=== PATIENT | female | born 1980 | race Asian ===

== ENCOUNTER 2019-06-30 07:56 | Inpatient (IN) ==
[2019-06-30] MEDS: LACTATED RINGER'S 1,000 ML IV PRN ×3 (08:25→18:22)
[2019-06-30] MEDS ORDERED: OXYTOCIN 30 UNITS/500 ML BAG IV PRN ×2 (08:55→09:20)
[2019-06-30] MEDS ORDERED: DEXTROSE 50% 50 ML SYRINGE IV PRN (08:56)
[2019-06-30] MEDS ORDERED: SODIUM CHLORIDE 0.9% 1000ML 1,000 ML IV PRN (08:56)
--- NOTE | 2019-06-30 09:00 | Labor Progress Brief Note ---
Date of Service June 30, 2019 Subjective Patient returns for planned IOL this AM. Delgado remains in place. Good FM, no LOF, no VB, no Ctx. Assessment & Plan (1) Gestational diabetes mellitus (GDM) controlled on oral hypoglycemic drug, antepartum: Induction of labor as indicated between 39-40 weeks for A2GDM. Will use insulin and glucose per protocol for tight glycemic control. Pitocin drip for induction. Epidural on request. Present on Admission?: Yes Physical Exam Physical Exam: Delgado bulb in vagina removed via gentle traction. Poor patient tolerance of exam; I am able to palpate the external cervix which feels at least 3cm dilated, soft, estimate 50% effaced, and would call station high and position mid. US in office yesterday done by this MD confirmed vertex position. Results & Data Vital Signs (Past 12 Hours) Vital Signs Temp Resp 06/30/19 08:31 97.5 F L 18 Intake and Output 06/29/19 06/30/19 06/30/19 22:59 06:59 14:59 Other: Weight 166 lb Patient Weight 07/01/19 06:59 Weight 166 lb Laboratory Results Laboratory Results - last 24 hr 06/30/19 08:15 POC Glucose 126 H
[2019-06-30 09:14] LABS: Hematocrit (blood only) 41.2 % (37-47); Hemoglobin 13.5 g/dL (12.0-16.0); Mean Corpuscular Hemoglobin 30.1 pg (25-34); Mean Corpuscular Volume 91.8 fL (80-100); Mean Platelet Volume 10.9 fL (7.4-10.4); Platelet Count 161 K/uL (130-400); RDW Coefficient of Variation 14.1 % (11.5-14.5); RDW Standard Deviation 46.8 fL (36.4-46.3); Red Blood Count 4.49 M/uL (4.2-5.4)
[2019-06-30 09:29] LABS: Mean Corpuscular Hgb Conc 32.8 g/dL (32-36)
[2019-06-30] MEDS: DEXTROSE 5% 1,000 ML IV SCH ×2 (10:16→20:18)
[2019-06-30] MEDS ORDERED: BUPIVACAINE 0.25% 30 ML VIAL ONE (11:21)
[2019-06-30] MEDS ORDERED: ePHEDrine sulfate 50 MG/ML AMP ONE (11:21)
[2019-06-30] MEDS ORDERED: fentaNYL citrate 100 MCG/2 ML VIAL ONE (11:22)
[2019-06-30] MEDS ORDERED: fentaNYL 2MCG/ML ROPIV 1.25MG/ML 100 ML BAG EPI ONE (11:22)
[2019-06-30] MEDS ORDERED: NALOXONE HCL 0.4 MG/1 ML VIAL/CARP IV PRN (12:02)
[2019-06-30] MEDS ORDERED: DiphenhydrAMINE HCL 50 MG/ML VIAL IV PRN (12:02)
[2019-06-30] MEDS ORDERED: PROMETHAZINE HCL 6.25 MG in SODIUM CHLORIDE 0.9% 50 ML IV PRN (12:02)
[2019-06-30] MEDS ORDERED: NALBUPHINE HCL INJ 10 MG/ML AMP IV PRN (12:02)
[2019-06-30] MEDS ORDERED: ePHEDrine sulfate 50 MG/ML AMP IV PRN (12:02)
[2019-06-30] MEDS ORDERED: fentaNYL 2MCG/ML ROPIV 1.25MG/ML 100 ML BAG EPI PRN (12:02)
[2019-06-30] MEDS ORDERED: ONDANSETRON INJ 2 MG/ML 2 ML VIAL IV PRN (12:02)
[2019-06-30] MEDS ORDERED: NALOXONE HCL 1 MG in SODIUM CHLORIDE 0.9% 1000ML 1,000 ML IV PRN (12:02)
--- NOTE | 2019-06-30 12:02 | Anesthesiology Consultation ---
Date of Service June 30, 2019 Gestational DM Assessment & Plan (1) Encounter for pre-operative examination: Chart Review Chart Review: Patient NOT seen in Pre Admission Testing and Acceptable Risk for Labor Epidural Consults Requested none ASA ASA2 Proposed Anesthesia Anesthesia Type: Labor Epidural Risk / Benefits Reviewed With: PT / POA / Parent / Guardian, Accepts Plan and Informed Consent Obtained History Height/Weight Height: 5 ft 4 in Weight: 75.296 kg Allergies Allergy/AdvReac Type Severity Reaction Status Date / Time No Known Allergies Allergy Verified 06/30/19 11:00 Medications Home Medications Medication Instructions Recorded Confirmed Last Taken clotrimazole-betamethasone 1 1 appln TOP BID PRN 06/06/19 06/29/19 Unknown %-0.05 % topical cream 21-iron fu-folic acid PO 06/06/19 06/29/19 Unknown metformin 500 mg tablet 500 mg PO BID #180 tab 06/15/19 06/29/19 Unknown Active Medications Generic Name Dose Route Start Last Admin Trade Name Freq PRN Reason Stop Dose Admin Dextrose 1,000 mls @ 100 mls/hr 06/30/19 09:00 06/30/19 11:16 D5w IV 07/30/19 08:59 100 mls/hr .Q10H GERALDO Infusion Protocol Lactated Ringer's 1,000 mls @ 125 mls/hr 06/30/19 08:55 06/30/19 11:48 Lr IV 07/02/19 08:54 125 mls/hr .Q8H PRN Administration L&D Protocol Protocol Oxytocin 30 units in 500 mls @ 7 mls/hr 06/30/19 09:20 06/30/19 11:05 Pitocin IV 07/02/19 09:19 0.42 units/hr .Q24H PRN 7 mls/hr Labor Induction/Augmentation Titration Protocol 0.42 UNITS/HR Past Medical History Medical History No pertinent past medical history S/P tooth extraction Exercise / Class Metabolic Activity II 4-5 Yardwork/Stairs/Walk up hill Past Family History Family History Mother Diabetes Hypertension Past Anesthesia History No Hx of Anesthesia Complications and No Family Hx of Anesthesia Complications History of PONV No Hx of PONV and No Hx of Motion Sickness Social History Smoking Status: Never smoker Hx Alcohol Use: No Hx Substance Use: No substance use type: does not use Physical Exam Vital Signs Last Vital Signs Temp 36.6 C 06/30/19 11:41 Pulse 74 06/30/19 11:59 Resp 18 06/30/19 11:41 BP 87/51 L 06/30/19 11:59 Pulse Ox 100 06/30/19 11:59 ENMT Mouth: no dentition abnormality Thyromental Distance: > or= 3.5 Finger Breadths Mallampati Class: II Neck normal visual inspection Respiratory normal respiratory effort Auscultation: lungs clear to auscultation bilaterally Cardiovascular Rate/Rhythm: regular rate and regular rhythm Psychiatric Orientation: alert Testing Laboratory Results 06/30/19 09:04 06/30/19 06/30/19 06/30/19 11:14 10:13 09:17 POC Glucose 77 73 94 06/30/19 08:15 POC Glucose 126 H
[2019-06-30] MEDS: INSULIN REGULAR 250 UNITS in SODIUM CHLORIDE 0.9% 247.5 ML IV PRN ×2 (12:20→19:57)
--- NOTE | 2019-06-30 12:46 | Labor Progress Brief Note ---
Date of Service June 30, 2019 Subjective Reason For Note: Routine Evaluation Comfortable with Epidural Assessment & Plan (1) Gestational diabetes mellitus (GDM) controlled on oral hypoglycemic drug, antepartum: IOL with pit, now AROM. head well applied after AROM for copious clear. Epidural. Continue insulin protocol. Present on Admission?: Yes Physical Exam Genitourinary: Manual OB Exam: + cervical dilation 5 cm, + cervical effacement 90%, + station high (-3) and + amniotic fluid clear OB Exam Monitor Tracing: + external uterine monitor used (Q2-3) and + category I Results & Data Vital Signs (Past 12 Hours) Vital Signs Temp Pulse Resp BP Pulse Ox 06/30/19 12:42 58 L 116/59 L 06/30/19 12:39 53 L 115/56 L 100 06/30/19 12:37 68 106/54 L 06/30/19 12:34 93 H 100 06/30/19 12:33 72 119/68 06/30/19 12:30 69 90/52 L 06/30/19 12:29 65 100 06/30/19 12:27 68 91/52 L 06/30/19 12:24 74 89/52 L 100 06/30/19 12:21 68 92/52 L 06/30/19 12:19 63 100 06/30/19 12:18 71 90/53 L 06/30/19 12:15 79 89/54 L 06/30/19 12:14 76 100 06/30/19 12:12 75 93/58 L 06/30/19 12:09 77 85/50 L 100 06/30/19 12:06 72 87/51 L 06/30/19 12:04 70 100 06/30/19 12:03 67 95/52 L 06/30/19 12:02 74 99/56 L 06/30/19 12:00 69 101/57 L 06/30/19 11:59 74 87/51 L 100 06/30/19 11:58 69 87/54 L 06/30/19 11:57 67 88/51 L 06/30/19 11:54 62 107/59 L 100 06/30/19 11:51 60 110/68 06/30/19 11:49 65 100 06/30/19 11:47 59 L 129/68 06/30/19 11:44 59 L 100 06/30/19 11:41 97.9 F 18 06/30/19 11:15 18 06/30/19 10:36 58 L 103/59 L 06/30/19 10:35 06/30/19 09:38 74 107/69 06/30/19 08:31 97.5 F L 06/30/19 07:58 84 18 102/64
--- NOTE | 2019-06-30 17:05 | Labor Progress Brief Note ---
Date of Service June 30, 2019 Subjective Comfortable with Epidural Assessment & Plan (1) Gestational diabetes mellitus (GDM) controlled on oral hypoglycemic drug, antepartum: IOL with pit AROM. head has descended and is pushing onto the cervix. Epidural. Continue insulin protocol. Pit at 11 because the contraction pattern, while likely overall insufficient, includes couples and triples that are less than 2 min apart. Counseled patient on role of IUPC in allowing us to use appropriate pitocin dose to break through this pattern if appropriate, or to diagnose CPD if adequate contraction pattern. Physical Exam Genitourinary: Manual OB Exam: + cervical dilation 5 cm, + cervical effacement 90%, + station -2 and + amniotic fluid clear OB Exam Monitor Tracing: + external uterine monitor used (coupling and tripling noted) and + category I Results & Data Vital Signs (Past 12 Hours) Vital Signs Temp Pulse Resp BP Pulse Ox 06/30/19 16:59 65 99 06/30/19 16:54 68 104/55 L 100 06/30/19 16:49 73 99 06/30/19 16:44 69 99 06/30/19 16:40 67 105/56 L 06/30/19 16:39 64 99 06/30/19 16:34 68 99 06/30/19 16:29 67 100 06/30/19 16:25 58 L 104/57 L 06/30/19 16:24 61 100 06/30/19 16:19 59 L 100 06/30/19 16:14 64 99 06/30/19 16:09 66 99/58 L 100 06/30/19 16:04 67 99 06/30/19 15:59 69 100 06/30/19 15:54 66 100 06/30/19 15:53 61 101/55 L 06/30/19 15:49 58 L 99 06/30/19 15:44 63 99 06/30/19 15:42 98.2 F 18 06/30/19 15:39 65 97/52 L 99 06/30/19 15:34 63 99 06/30/19 15:29 67 99 06/30/19 15:24 61 99 06/30/19 15:23 65 90/53 L 06/30/19 15:19 62 99 06/30/19 15:14 64 99 06/30/19 15:09 57 L 85/54 L 99 06/30/19 15:04 59 L 100 06/30/19 14:59 70 100 06/30/19 14:55 61 100/58 L 06/30/19 14:54 60 99 06/30/19 14:49 60 99 06/30/19 14:44 56 L 99 06/30/19 14:40 64 94/54 L 06/30/19 14:39 61 99 06/30/19 14:36 98.1 F 18 06/30/19 14:34 61 99 06/30/19 14:29 58 L 98 06/30/19 14:24 68 93/52 L 98 06/30/19 14:19 56 L 98 06/30/19 14:14 57 L 98 06/30/19 14:10 56 L 111/58 L 06/30/19 14:09 58 L 98 06/30/19 14:04 63 97 06/30/19 13:59 61 98 06/30/19 13:55 59 L 113/57 L 06/30/19 13:54 59 L 99 06/30/19 13:50 18 06/30/19 13:49 62 99 06/30/19 13:44 60 98 06/30/19 13:40 59 L 107/65 06/30/19 13:39 60 99 06/30/19 13:34 58 L 98 06/30/19 13:29 57 L 98 06/30/19 13:24 56 L 99 06/30/19 13:22 57 L 115/61 06/30/19 13:19 67 99 06/30/19 13:18 64 109/57 L 06/30/19 13:15 60 18 115/57 L 06/30/19 13:14 55 L 99 06/30/19 13:13 56 L 114/60 06/30/19 13:09 63 107/58 L 100 06/30/19 13:07 58 L 120/59 L 06/30/19 13:04 62 99 06/30/19 13:03 60 104/56 L 06/30/19 13:01 58 L 115/58 L 06/30/19 13:00 18 06/30/19 12:59 57 L 99 06/30/19 12:57 62 103/56 L 06/30/19 12:54 58 L 113/61 99 06/30/19 12:51 59 L 116/61 06/30/19 12:49 64 99 06/30/19 12:48 63 106/58 L 06/30/19 12:46 20 06/30/19 12:45 61 117/68 06/30/19 12:44 60 99 06/30/19 12:42 58 L 116/59 L 06/30/19 12:39 53 L 115/56 L 100 06/30/19 12:37 68 106/54 L 06/30/19 12:34 93 H 100 06/30/19 12:33 72 119/68 06/30/19 12:30 69 90/52 L 06/30/19 12:29 65 100 06/30/19 12:27 68 91/52 L 06/30/19 12:24 74 89/52 L 100 06/30/19 12:21 68 92/52 L 06/30/19 12:19 63 100 06/30/19 12:18 71 90/53 L 06/30/19 12:15 79 18 89/54 L 06/30/19 12:14 76 100 06/30/19 12:12 75 93/58 L 06/30/19 12:10 18 06/30/19 12:09 77 85/50 L 100 06/30/19 12:06 72 87/51 L 06/30/19 12:05 18 06/30/19 12:04 70 100 06/30/19 12:03 67 95/52 L 06/30/19 12:02 74 99/56 L 06/30/19 12:00 69 18 101/57 L 06/30/19 11:59 74 87/51 L 100 06/30/19 11:58 69 87/54 L 06/30/19 11:57 67 88/51 L 06/30/19 11:54 62 107/59 L 100 06/30/19 11:51 60 110/68 06/30/19 11:49 65 100 06/30/19 11:47 59 L 129/68 06/30/19 11:44 59 L 100 06/30/19 11:41 97.9 F 18 06/30/19 11:15 18 06/30/19 10:36 58 L 103/59 L 06/30/19 10:35 18 06/30/19 09:38 74 107/69 06/30/19 08:31 97.5 F L 18 06/30/19 07:58 84 18 102/64
--- NOTE | 2019-06-30 21:07 | Labor Progress Brief Note ---
Date of Service June 30, 2019 Subjective Feeling mild pressure. Assessment & Plan (1) Gestational diabetes mellitus (GDM) controlled on oral hypoglycemic drug, antepartum: Complete dilation reached. Patient coached through a test push. She did not appear to actually make significant push effort despite coaching. She did not move or strain the vertex down at all. Asked if she feels ready to push and she says she does not feel a strong urge. Will labor down for up to 1 hour before beginning second stage. Present on Admission?: Yes Physical Exam Genitourinary: Manual OB Exam: + cervical dilation 10 cm, + cervical effacement 100%, + station + 1 and + amniotic fluid (bloody show+) clear OB Exam Monitor Tracing: + external FHT monitor used, + external uterine monitor used (Q2) and + category I Results & Data Vital Signs (Past 12 Hours) Vital Signs Temp Pulse Resp BP Pulse Ox 06/30/19 21:02 57 L 128/68 06/30/19 20:59 57 L 100 06/30/19 20:54 56 L 100 06/30/19 20:49 55 L 100 06/30/19 20:44 56 L 100 06/30/19 20:39 56 L 100 06/30/19 20:34 61 100 06/30/19 20:33 61 133/74 06/30/19 20:30 18 06/30/19 20:29 56 L 100 06/30/19 20:24 99.9 F H 61 18 100 06/30/19 20:19 56 L 100 06/30/19 20:14 54 L 100 06/30/19 20:09 58 L 100 06/30/19 20:04 61 100 06/30/19 19:59 62 100 06/30/19 19:54 56 L 106/59 L 100 06/30/19 19:49 57 L 100 06/30/19 19:44 55 L 100 06/30/19 19:39 55 L 105/55 L 100 06/30/19 19:34 52 L 100 06/30/19 19:29 53 L 100 06/30/19 19:25 53 L 101/58 L 06/30/19 19:24 53 L 100 06/30/19 19:19 60 100 06/30/19 19:14 60 100 06/30/19 19:10 18 06/30/19 19:09 53 L 100 06/30/19 19:08 55 L 117/67 06/30/19 19:04 58 L 100 06/30/19 18:59 55 L 100 06/30/19 18:54 55 L 120/66 100 06/30/19 18:49 54 L 100 06/30/19 18:44 52 L 100 06/30/19 18:39 51 L 100 06/30/19 18:38 53 L 118/65 06/30/19 18:34 56 L 100 06/30/19 18:29 56 L 100 06/30/19 18:24 57 L 113/61 100 06/30/19 18:19 63 100 06/30/19 18:14 61 100 06/30/19 18:09 98.2 F 67 18 100 06/30/19 18:08 55 L 106/61 06/30/19 18:04 57 L 100 06/30/19 17:59 59 L 100 06/30/19 17:55 55 L 112/61 06/30/19 17:54 56 L 100 06/30/19 17:49 76 100 06/30/19 17:44 59 L 100 06/30/19 17:39 59 L 125/73 100 06/30/19 17:34 60 100 06/30/19 17:29 61 100 06/30/19 17:24 59 L 110/62 100 06/30/19 17:19 57 L 99 06/30/19 17:14 61 99 06/30/19 17:09 56 L 105/60 99 06/30/19 17:04 63 100 06/30/19 16:59 65 99 06/30/19 16:54 68 104/55 L 100 06/30/19 16:49 73 99 06/30/19 16:44 69 99 06/30/19 16:40 67 105/56 L 06/30/19 16:39 64 99 06/30/19 16:34 68 99 06/30/19 16:29 67 100 06/30/19 16:25 58 L 104/57 L 06/30/19 16:24 61 100 06/30/19 16:19 59 L 100 06/30/19 16:14 64 99 06/30/19 16:09 66 99/58 L 100 06/30/19 16:04 67 99 06/30/19 15:59 69 100 06/30/19 15:54 66 100 06/30/19 15:53 61 101/55 L 06/30/19 15:49 58 L 99 06/30/19 15:44 63 99 06/30/19 15:42 98.2 F 18 06/30/19 15:39 65 97/52 L 99 06/30/19 15:34 63 99 06/30/19 15:29 67 99 06/30/19 15:24 61 99 06/30/19 15:23 65 90/53 L 06/30/19 15:19 62 99 06/30/19 15:14 64 99 06/30/19 15:09 57 L 85/54 L 99 06/30/19 15:04 59 L 100 06/30/19 14:59 70 100 06/30/19 14:55 61 100/58 L 06/30/19 14:54 60 99 06/30/19 14:49 60 99 06/30/19 14:44 56 L 99 06/30/19 14:40 64 94/54 L 06/30/19 14:39 61 99 06/30/19 14:36 98.1 F 18 06/30/19 14:34 61 99 06/30/19 14:29 58 L 98 06/30/19 14:24 68 93/52 L 98 06/30/19 14:19 56 L 98 06/30/19 14:14 57 L 98 06/30/19 14:10 56 L 111/58 L 06/30/19 14:09 58 L 98 06/30/19 14:04 63 97 06/30/19 13:59 61 98 06/30/19 13:55 59 L 113/57 L 06/30/19 13:54 59 L 99 06/30/19 13:50 18 06/30/19 13:49 62 99 06/30/19 13:44 60 98 06/30/19 13:40 59 L 107/65 06/30/19 13:39 60 99 06/30/19 13:34 58 L 98 06/30/19 13:29 57 L 98 06/30/19 13:24 56 L 99 06/30/19 13:22 57 L 115/61 06/30/19 13:19 67 99 06/30/19 13:18 64 109/57 L 06/30/19 13:15 60 18 115/57 L 06/30/19 13:14 55 L 99 06/30/19 13:13 56 L 114/60 06/30/19 13:09 63 107/58 L 100 06/30/19 13:07 58 L 120/59 L 06/30/19 13:04 62 99 06/30/19 13:03 60 104/56 L 06/30/19 13:01 58 L 115/58 L 06/30/19 13:00 18 06/30/19 12:59 57 L 99 06/30/19 12:57 62 103/56 L 06/30/19 12:54 58 L 113/61 99 06/30/19 12:51 59 L 116/61 06/30/19 12:49 64 99 06/30/19 12:48 63 106/58 L 06/30/19 12:46 20 06/30/19 12:45 61 117/68 06/30/19 12:44 60 99 06/30/19 12:42 58 L 116/59 L 06/30/19 12:39 53 L 115/56 L 100 06/30/19 12:37 68 106/54 L 06/30/19 12:34 93 H 100 06/30/19 12:33 72 119/68 06/30/19 12:30 69 90/52 L 06/30/19 12:29 65 100 06/30/19 12:27 68 91/52 L 06/30/19 12:24 74 89/52 L 100 06/30/19 12:21 68 92/52 L 06/30/19 12:19 63 100 06/30/19 12:18 71 90/53 L 06/30/19 12:15 79 18 89/54 L 06/30/19 12:14 76 100 06/30/19 12:12 75 93/58 L 06/30/19 12:10 18 06/30/19 12:09 77 85/50 L 100 06/30/19 12:06 72 87/51 L 06/30/19 12:05 18 06/30/19 12:04 70 100 06/30/19 12:03 67 95/52 L 06/30/19 12:02 74 99/56 L 06/30/19 12:00 69 18 101/57 L 06/30/19 11:59 74 87/51 L 100 06/30/19 11:58 69 87/54 L 06/30/19 11:57 67 88/51 L 06/30/19 11:54 62 107/59 L 100 06/30/19 11:51 60 110/68 06/30/19 11:49 65 100 06/30/19 11:47 59 L 129/68 06/30/19 11:44 59 L 100 06/30/19 11:41 97.9 F 18 06/30/19 11:15 18 06/30/19 10:36 58 L 103/59 L 06/30/19 10:35 18 06/30/19 09:38 74 107/69
[2019-06-30] MEDS ORDERED: ACETAMINOPHEN 325 MG TAB PO STA (21:39)
--- NOTE | 2019-06-30 21:40 | Communication Note ---
Date of Service: June 30, 2019 baseline now 170 with good variability, accels, but also occasional lates. Maternal temp rising. Though no fever yet recorded, suspect brewing chorioamnionitis, and will treat with tylenol and Unasyn since there may yet be a significant amount of time before delivery. Second stage to begin.
[2019-06-30] MEDS ORDERED: AMPICILLIN/SULBACTAM SOD 3,000 MG in 0.9 % SODIUM CHLORIDE 100 ML IV ONE (21:45)
--- NOTE | 2019-06-30 23:48 | Delivery Summary ---
Vaginal Delivery Summary Date of Service June 30, 2019 Vaginal Delivery Summary DIAGNOSES: 1. [place] intrauterine at 39w4d gestation. 2. Induction of labor for A2GDM. 3. Group B Streptococcus Neg. PROCEDURE: Spontaneous vaginal delivery and repair of 2nd degree and R sulcal laceration. SURGEON: Melia Bentley MD. TOOL AND DIE DESIGNER: None. ESTIMATED BLOOD LOSS: 350 mL. COMPLICATIONS: None. PLACENTA: Spontaneous and intact with a 3-vessel cord. DISPOSITION: Stable to labor and delivery. DESCRIPTION: The patient pushed well and brought the head to in OA position. The infant's head was allowed to deliver with contraction force and no further active pushing, with the perineum protected during this time. The shoulders delivered easily with a maternal pushing effort. There was no nuchal cord. The left shoulder was anterior. The shoulders and body delivered without any difficulty, and the was placed on the maternal abdomen. It was vigorous and moving all extremities, and making respiratory efforts. The cord was doubly clamped by the MD and then cut by the MD. The was taken to the warmer due to meconium seen at delivery. The placenta delivered spontaneously and was noted to be intact and with a 3VC. The cervix, vagina and perineum were examined and were found to have a second degree perineal laceration and a R sulcus laceration. All lacerations were repaired using vicryl suture in the usual manner. The fundus was firm and lochia minimal immediately after delivery.
[2019-07-01] MEDS ORDERED: LACTATED RINGER'S 1,000 ML IV SCH (02:18)
[2019-07-01] MEDS ORDERED: OXYCODONE/ACETAMINOPHEN 5mg/325mg TAB PO PRN (02:18)
[2019-07-01] MEDS ORDERED: DIPHTHERIA/TETANUS/PERTUSSIS 0.5 ML SYR/VIAL IM ONE (02:18)
[2019-07-01] MEDS ORDERED: SUPERCREAM 0.870% 15 GM JAR EXT PRN (02:18)
[2019-07-01] MEDS ORDERED: HYDROCORTISONE ACETATE 25 MG SUPP PR PRN (02:18)
[2019-07-01] MEDS ORDERED: BENZOCAINE 20% AER SPR 82.5 GM CAN EXT PRN (02:18)
[2019-07-01] MEDS ORDERED: bisacodyL 10 MG SUPP PR PRN (02:18)
[2019-07-01] MEDS: IBUPROFEN 600 MG TAB PO PRN ×4 (04:46→23:36)
--- NOTE | 2019-07-01 06:09 | Obstetrical Progress Note ---
Date of Service <Yakov Estrada MD - Last Filed: 07/01/19 06:55> July 01, 2019 Assessment & Plan <Yakov Estrada MD - Last Filed: 07/01/19 06:55> (1) : 06/30 PPD#1 feels well, voiding well, ambulating well will continue routine care after discharge will have 6 week follow-up Subjective <Yakov Estrada MD - Last Filed: 07/01/19 06:55> Ms Gil is a 38 y/o female ; PPD #1 following spontaneous vaginal delivery at 39+ weeks; doing well this morning; having some mild abdominal cramping/pain; voiding well, passing gas but no bowel movements; tolerating meals overnight; and able to ambulate some; some persistent spotting with intermittent improvement this morning. Review of Systems Constitutional: denies fever; chills; sweats; headache Respiratory: denies shortness of breath, difficulty breathing Cardiac: denies chest pain; palpitations; chest pressure Breast: denies breast pain : denies dysuria Physical Exam <Yakov Estrada MD - Last Filed: 07/01/19 06:55> General: alert; oriented; no acute distress Cardiac: RRR; no m/g/r Respiratory: CTAB a/p; no wheezes/rales/rhonchi; no increased work of breathing; symmetrical chest rise; no respiratory distress Abdomen: soft; NT/ND; bowel sounds positive Uterus: uterine fundus firm; palpable at the umbilicus Lower extrem: no lower extremity edema or swelling; no deep calf pain; Darrion's sign negative b/l Results & Data <Yakov Estrada MD - Last Filed: 07/01/19 06:55> Vital Signs (Past 12 Hours) Vital Signs Temp Pulse Pulse Resp BP BP Pulse Ox 07/01/19 04:30 37.4 C 72 16 94/58 L 98 07/01/19 02:05 36.5 C 57 L 16 97/59 L 98 07/01/19 01:47 36.7 C 63 16 103/55 L 07/01/19 01:27 78 18 100/58 L 07/01/19 01:17 18 07/01/19 01:06 68 91/55 L 07/01/19 01:03 73 79/49 L 07/01/19 00:47 56 L 18 104/59 L 07/01/19 00:32 56 L 18 97/53 L 07/01/19 00:17 56 L 16 108/58 L 07/01/19 00:02 60 20 116/61 06/30/19 23:47 60 18 120/58 L 06/30/19 23:44 64 99 06/30/19 23:41 56 L 112/55 L 06/30/19 23:39 62 100 06/30/19 23:34 64 100 06/30/19 23:29 66 99 06/30/19 23:25 20 06/30/19 23:24 86 100 06/30/19 23:19 89 100 06/30/19 23:17 79 95/57 L 06/30/19 23:15 20 06/30/19 23:14 76 99 06/30/19 23:09 78 97 06/30/19 23:04 87 100 06/30/19 23:02 37.1 C 68 98/56 L 06/30/19 23:00 18 06/30/19 22:59 68 99 06/30/19 22:54 66 99 06/30/19 22:49 63 99 06/30/19 22:44 67 99 06/30/19 22:39 92 H 100 06/30/19 22:34 76 99 06/30/19 22:31 69 100/57 L 06/30/19 22:29 70 99 06/30/19 22:24 65 100 06/30/19 22:19 94 H 99 06/30/19 22:14 74 99 06/30/19 22:09 69 100 06/30/19 22:04 80 100 06/30/19 22:02 64 103/57 L 06/30/19 21:59 65 100 06/30/19 21:55 37.9 C H 18 06/30/19 21:54 63 100 06/30/19 21:49 63 100 06/30/19 21:44 59 L 100 06/30/19 21:39 60 100 06/30/19 21:34 61 100 06/30/19 21:31 59 L 119/67 06/30/19 21:29 61 100 06/30/19 21:24 59 L 100 06/30/19 21:19 57 L 100 06/30/19 21:14 61 100 06/30/19 21:09 57 L 100 06/30/19 21:04 58 L 100 06/30/19 21:02 57 L 128/68 06/30/19 20:59 57 L 100 06/30/19 20:54 56 L 100 06/30/19 20:49 55 L 100 06/30/19 20:44 56 L 100 06/30/19 20:39 56 L 100 06/30/19 20:34 61 100 06/30/19 20:33 61 133/74 06/30/19 20:30 18 06/30/19 20:29 56 L 100 06/30/19 20:24 37.7 C H 61 18 100 06/30/19 20:19 56 L 100 06/30/19 20:14 54 L 100 06/30/19 20:09 58 L 100 06/30/19 20:04 61 100 06/30/19 19:59 62 100 06/30/19 19:54 56 L 106/59 L 100 06/30/19 19:49 57 L 100 06/30/19 19:44 55 L 100 06/30/19 19:39 55 L 105/55 L 100 06/30/19 19:34 52 L 100 06/30/19 19:29 53 L 100 06/30/19 19:25 53 L 101/58 L 06/30/19 19:24 53 L 100 06/30/19 19:19 60 100 06/30/19 19:14 60 100 06/30/19 19:10 18 06/30/19 19:09 53 L 100 06/30/19 19:08 55 L 117/67 06/30/19 19:04 58 L 100 06/30/19 18:59 55 L 100 06/30/19 18:54 55 L 120/66 100 06/30/19 18:49 54 L 100 06/30/19 18:44 52 L 100 06/30/19 18:39 51 L 100 06/30/19 18:38 53 L 118/65 06/30/19 18:34 56 L 100 06/30/19 18:29 56 L 100 06/30/19 18:24 57 L 113/61 100 06/30/19 18:19 63 100 06/30/19 18:14 61 100 06/30/19 18:09 36.8 C 67 18 100 06/30/19 18:08 55 L 106/61 Laboratory Results 07/01/19 06/30/19 06/30/19 Range/Units 06:11 22:29 21:30 WBC 17.55 H D (4.8-10.8) K/uL RBC 4.01 L (4.2-5.4) M/uL Hgb 12.2 (12.0-16.0) g/dL Hct 36.6 L (37-47) % MCV 91.3 (80-100) fL MCH 30.4 (25-34) pg MCHC 33.3 (32-36) g/dL RDW Std Deviation 47.2 H (36.4-46.3) fL RDW Coeff of Jonathan 14.2 (11.5-14.5) % Plt Count 157 (130-400) K/uL MPV 10.5 H (7.4-10.4) fL POC Glucose 88 85 (70-99) 06/30/19 06/30/19 06/30/19 Range/Units 20:22 19:35 18:25 WBC (4.8-10.8) K/uL RBC (4.2-5.4) M/uL Hgb (12.0-16.0) g/dL Hct (37-47) % MCV (80-100) fL MCH (25-34) pg MCHC (32-36) g/dL RDW Std Deviation (36.4-46.3) fL RDW Coeff of Jonathan (11.5-14.5) % Plt Count (130-400) K/uL MPV (7.4-10.4) fL POC Glucose 85 82 75 (70-99) 06/30/19 06/30/19 06/30/19 Range/Units 17:22 16:24 15:26 WBC (4.8-10.8) K/uL RBC (4.2-5.4) M/uL Hgb (12.0-16.0) g/dL Hct (37-47) % MCV (80-100) fL MCH (25-34) pg MCHC (32-36) g/dL RDW Std Deviation (36.4-46.3) fL RDW Coeff of Jonathan (11.5-14.5) % Plt Count (130-400) K/uL MPV (7.4-10.4) fL POC Glucose 73 71 75 (70-99) 06/30/19 06/30/19 06/30/19 Range/Units 14:22 13:22 12:15 WBC (4.8-10.8) K/uL RBC (4.2-5.4) M/uL Hgb (12.0-16.0) g/dL Hct (37-47) % MCV (80-100) fL MCH (25-34) pg MCHC (32-36) g/dL RDW Std Deviation (36.4-46.3) fL RDW Coeff of Jonathan (11.5-14.5) % Plt Count (130-400) K/uL MPV (7.4-10.4) fL POC Glucose 77 79 80 (70-99) 06/30/19 06/30/19 06/30/19 Range/Units 11:14 10:13 09:17 WBC (4.8-10.8) K/uL RBC (4.2-5.4) M/uL Hgb (12.0-16.0) g/dL Hct (37-47) % MCV (80-100) fL MCH (25-34) pg MCHC (32-36) g/dL RDW Std Deviation (36.4-46.3) fL RDW Coeff of Jonathan (11.5-14.5) % Plt Count (130-400) K/uL MPV (7.4-10.4) fL POC Glucose 77 73 94 (70-99) 06/30/19 06/30/19 Range/Units 09:04 08:15 WBC 6.60 (4.8-10.8) K/uL RBC 4.49 (4.2-5.4) M/uL Hgb 13.5 (12.0-16.0) g/dL Hct 41.2 (37-47) % MCV 91.8 (80-100) fL MCH 30.1 (25-34) pg MCHC 32.8 (32-36) g/dL RDW Std Deviation 46.8 H (36.4-46.3) fL RDW Coeff of Jonathan 14.1 (11.5-14.5) % Plt Count 161 (130-400) K/uL MPV 10.9 H (7.4-10.4) fL POC Glucose 126 H (70-99) Medications Administered Current Inpatient Medications Acetaminophen (Tylenol) 650 mg PO Q6H PRN PRN Reason: Pain/[place]/Fever Stop: 07/31/19 02:17 Benzocaine (Dermoplast Pain Relieving [place]) 1 appln EXT PRN PRN PRN Reason: Perineal Discomfort Stop: 07/31/19 02:17 Last Admin: 07/01/19 02:53 Dose: 1 appln Documented by: Bisacodyl (Dulcolax) 5 mg PO 1999 [facility] Stop: 07/01/19 20:01 Bisacodyl (Dulcolax) 10 mg [place] DAILY PRN PRN Reason: No BM on 2nd post- day Stop: 07/31/19 02:17 Cocaine HCl (Supercream 0.870%) 1 gm EXT BID PRN PRN Reason: Hemorrhoidal Inflammation Stop: 07/15/19 02:17 Docusate Sodium (Colace) 100 mg PO DAILY@08,21 [facility] Stop: 07/31/19 07:59 Hydrocortisone (Anusol Hc) 25 mg SD BID PRN PRN Reason: Hemorrhoidal Inflammation Stop: 07/31/19 02:17 Oxytocin (Pitocin) 30 units in 500 mls @ 333.333 mls/hr IV .Q1H30M PRN; Protocol PRN Reason: Bleeding Control Stop: 07/30/19 08:54 Lactated Ringer's (Lr) 1,000 mls @ 125 mls/hr IV .Q8H [facility] Stop: 07/31/19 02:17 Ibuprofen (Motrin) 600 mg PO Q4H PRN PRN Reason: Pain/[place]/Cramping/Fever Stop: 07/31/19 02:17 Last Admin: 07/01/19 04:46 Dose: 600 mg Documented by: Oxycodone/Acetaminophen (Percocet 5mg/325mg) 1 tab PO Q4H PRN PRN Reason: Pain not relieved by... Stop: 07/15/19 02:17 Prenat Multivit/[employer]isher/Iron/Folic Ac ( Vitamin) 1 tab PO DAILY@08 [facility] Stop: 07/31/19 07:59 <Melia Bentley MD - Last Filed: 07/01/19 07:46> Co-Signing Physician Notes I have reviewed the resident's note and examined the patient myself, and agree with the note above. Resident Activity Tracking <Yakov Estrada MD - Last Filed: 07/01/19 06:55> Resident Involvement: Resident Care Provided Care Provided: OB Delivery
[2019-07-01 06:22] LABS: Hematocrit (blood only) 36.6 % (37-47); Hemoglobin 12.2 g/dL (12.0-16.0); Mean Corpuscular Hemoglobin 30.4 pg (25-34); Mean Corpuscular Hgb Conc 33.3 g/dL (32-36); Mean Corpuscular Volume 91.3 fL (80-100); Mean Platelet Volume 10.5 fL (7.4-10.4); Platelet Count 157 K/uL (130-400); RDW Coefficient of Variation 14.2 % (11.5-14.5); RDW Standard Deviation 47.2 fL (36.4-46.3); Red Blood Count 4.01 M/uL (4.2-5.4); White Blood Count 17.55 K/uL (4.8-10.8)
[2019-07-01] MEDS: PRENATAL VITAMIN 1 TAB PO SCH (08:15)
[2019-07-01] MEDS: ACETAMINOPHEN 325 MG TAB PO PRN ×3 (08:15→23:00)
[2019-07-01] MEDS: DOCUSATE SODIUM 100 MG CAP PO SCH ×2 (08:15→19:52)
--- NOTE | 2019-07-01 13:24 | Anesthesia Procedure Note ---
Date of Service July 01, 2019 Anesthesia Post Epidural Note Vital Signs Vital Signs: Temp Pulse Resp BP Pulse Ox 36.6 C 64 18 92/55 L 96 07/01/19 11:10 07/01/19 11:10 07/01/19 11:10 07/01/19 11:10 07/01/19 11:10 Pain Intensity Abdomen: Pain Intensity: 5 Notes Mental Status: alert / awake / arousable and participated in evaluation Nausea / Vomiting: adequately controlled Pain: adequately controlled Airway Patency, RR, SpO2: stable & adequate BP & HR: stable & adequate Hydration State: stable & adequate Neuraxial Anesthesia: was administered and sensory block is resolving Anesthetic Complications: no major complications apparent Epidural: Removed without complications and With tip intact
[2019-07-01] MEDS ORDERED: bisacodyL 5 MG TABEC PO SCH (20:00)
[2019-07-02] MEDS: IBUPROFEN 600 MG TAB PO PRN ×2 (04:13→12:55)
--- NOTE | 2019-07-02 06:06 | Obstetrical Progress Note ---
Date of Service <Yakov Estrada MD - Last Filed: 07/02/19 06:43> July 02, 2019 Assessment & Plan <Yakov Estrada MD - Last Filed: 07/02/19 06:43> (1) : 06/30 PPD#2 feels well, voiding well, ambulating well will continue routine care after discharge will have 6 week follow-up Subjective <Yakov Estrada MD - Last Filed: 07/02/19 06:43> Ms Gil is a 38 y/o female ; PPD #2 following spontaneous vaginal delivery at 39+ weeks; doing well this morning; having some mild abdominal cramping/pain; voiding well, passed bowel movement that exacerbated the pain late yesterday; tolerating meals overnight; and able to ambulate some around room; some persistent spotting with intermittent improvement this morning. Review of Systems Constitutional: denies fever; chills; sweats; headache Respiratory: denies shortness of breath, difficulty breathing Cardiac: denies chest pain; palpitations; chest pressure Breast: denies breast pain : denies dysuria Physical Exam <Yakov Estrada MD - Last Filed: 07/02/19 06:43> General: alert; oriented; no acute distress Cardiac: RRR; no m/g/r Respiratory: CTAB a/p; no wheezes/rales/rhonchi; no increased work of breathing; symmetrical chest rise; no respiratory distress Abdomen: soft; NT/ND; bowel sounds positive Uterus: uterine fundus firm; palpable 3cm below umbilicus Lower extrem: no lower extremity edema or swelling; no deep calf pain; Darrion's sign negative b/l Results & Data <Yakov Estrada MD - Last Filed: 07/02/19 06:43> Vital Signs (Past 12 Hours) Vital Signs Temp Pulse Resp BP BP 07/01/19 23:00 36.3 C L 64 18 110/68 07/01/19 19:45 36.5 C 64 18 102/64 Medications Administered Current Inpatient Medications Acetaminophen (Tylenol) 650 mg PO Q6H PRN PRN Reason: Pain/[place]/Fever Stop: 07/31/19 02:17 Last Admin: 07/01/19 23:00 Dose: 650 mg Documented by: Benzocaine (Dermoplast Pain Relieving [place]) 1 appln EXT PRN PRN PRN Reason: Perineal Discomfort Stop: 07/31/19 02:17 Last Admin: 07/01/19 02:53 Dose: 1 appln Documented by: Bisacodyl (Dulcolax) 10 mg [place] DAILY PRN PRN Reason: No BM on 2nd post- day Stop: 07/31/19 02:17 Cocaine HCl (Supercream 0.870%) 1 gm EXT BID PRN PRN Reason: Hemorrhoidal Inflammation Stop: 07/15/19 02:17 Docusate Sodium (Colace) 100 mg PO DAILY@08, [facility] Stop: 07/31/19 07:59 Last Admin: 07/01/19 19:52 Dose: 100 mg Documented by: Hydrocortisone (Anusol Hc) 25 mg [place] BID PRN PRN Reason: Hemorrhoidal Inflammation Stop: 07/31/19 02:17 Oxytocin (Pitocin) 30 units in 500 mls @ 333.333 mls/hr IV .Q1H30M PRN; Protocol PRN Reason: Bleeding Control Stop: 07/30/19 08:54 Lactated Ringer's (Lr) 1,000 mls @ 125 mls/hr IV .Q8H [facility] Stop: 07/31/19 02:17 Ibuprofen (Motrin) 600 mg PO Q4H PRN PRN Reason: Pain/[place]/Cramping/Fever Stop: 07/31/19 02:17 Last Admin: 07/02/19 04:13 Dose: 600 mg Documented by: Oxycodone/Acetaminophen (Percocet 5mg/325mg) 1 tab PO Q4H PRN PRN Reason: Pain not relieved by... Stop: 07/15/19 02:17 Prenat Multivit/[place]/Iron/Folic Ac ( Vitamin) 1 tab PO DAILY@08 [facility] Stop: 07/31/19 07:59 Last Admin: 07/01/19 08:15 Dose: 1 tab Documented by: <Mariann Helm MD, FACOG - Last Filed: 07/02/19 07:08> Co-Signing Physician Notes Resident Physician Supervision Note: I was present with Dr. Dr. Estrada during the history and exam. I discussed the case with the resident and agree with the findings and plan as documented in the note. Any exceptions or clarifications are listed here: [None] Documented By: Mariann Helm MD, FACOG Resident Activity Tracking <Yakov Estrada MD - Last Filed: 07/02/19 06:43> Resident Involvement: Resident Care Provided Care Provided: OB Delivery
[2019-07-02] MEDS: DOCUSATE SODIUM 100 MG CAP PO SCH (08:41)
[2019-07-02] MEDS: PRENATAL VITAMIN 1 TAB PO SCH (08:41)
--- NOTE | 2019-07-06 08:16 | Coding Query ---
PATHOLOGY To promote full compliance with coding requirements relating to patient care, physician participation is requested in all cases of chief engineer production uncertainty. Please assist us with the question(s) below: Please review the Pathology report and please document any relevant diagnosis(es) below: Diagnosis_chorioamnionitis ( x ) POA ( ) Not POA Thank you Laurence SOLORZANO
== END 2019-07-02 14:15 | disposition home or self-care (01) | DRG 805 ==
LOC: 4S1 07:56 → 4S2 07-01 02:20